=== PATIENT | female | born 1955 | race Caucasian/White ===

== ENCOUNTER 2024-09-12 13:11 | Inpatient (IN) | payer OTHER ==
[~2024-09-12] VITALS: Ht 160 cm; Wt 119.0 kg
[2024-09-12 13:24] VITALS: PULSE 174; RESP 17; O2SAT 98
--- NOTE | 2024-09-12 13:58 | ED.PDOC ---
SOB-HPI HPI Comments 69y F who presents to the ED via EMS for chief complaint of shortness of breath. Pt had the following course of events: - pt has been having shortness of breath for the past 1 month -pt states she could not handle the exacerbation of her symptoms and came to [facility] urgent care for further evaluation -Urgent care staff checked vitals and noted elevated heart rate and did EKG which showed AFIB RVR and called EMS -EMS arrived on scene and checked vitals with noted heart rate in the 200's and repeat EKG showed pt in AFIB RVR and pt was given IV fluids and placed on supplemental 0xygen of 4 L via nc with 02 sat at 95% and brought to the ED - pt in the ED, noted to have elevated heart rate in the 180's with noted BP of 171/106 and NO NOTED HISTORY OF AFIB -pt otherwise denies any other symptoms at this time PMH: hypertension ,asthma PSH: denies Allergies: denies Social history: denies tobacco use, denies ETOH use, denies drug use HPI: Poor Historian. REVIEW OF SYSTEMS: CONSTITUTIONAL: Denies acute: fever, diaphoresis, chills, HEAD: Denies acute: headache, photophobia Eyes: Denies acute: Double vision, vision loss, eye pain, eye discharge. EARS: Denies acute: tinnitus, hearing loss, ear discharge, ear pain, THROAT: Denies acute: sore throat, swelling, difficulty swallowing , pain with swallowing, change in voice. NECK: Denies acute: neck pain, neck swelling, stiff neck. HEART: Denies acute : chest pain, palpitations, LUNGS: Denies acute: wheezing, cough, hemoptysis ABDOMEN: Denies acute: abdominal pain, Nausea, Vomiting, diarrhea, melena , hematemesis, hematochezia SKIN: Denies acute: rash, redness, lesions, itchiness. EXTREMITIES: Denies acute: calf pain, numbness, tingling, weakness, denies pain in extremity. Denies acute: Low back pain. Neuro: Denies acute: focal neurological deficit, motor or sensory focal neurological deficit, tremors, seizure like activity, confusion, dizziness, change in mental status, loss of bowel or bladder function, cauda equina like symptoms. : Denies acute: dysuria, hematuria, flank pain, increase in urinary frequency. PSYCH: Denies acute: hallucination, suicidal ideation, homicidal ideation. FEMALE: Denies acute: abnormal vaginal bleeding, foul odor, unusual discharge. PHYSICAL EXAM: General: no acute distress, awake and alert. Head: normocephalic, atraumatic. Neck: supple, trachea is midline, no swelling. Throat: Normal phonation. Eyes:, no erythema, no purulent discharge, no proptosis, no icterus. Heart: Irregular rate and rhythm consistent with AFib with RVR. no significant murmur appreciated. Lungs: no apparent respiratory distress, Able to speak in full sentences. No wheezing, no rhonchi, no crackles. No stridors Clear to auscultation bilaterally. Abdomen: non tender to palpation, non distended, soft, no guarding, no rebound, + bowel sounds. Obese Neuro: Awake, Alert, oriented to name, self, situation, follows commands GCS=15. Speech is normal. Skin: no petechia, no purpura, no cyanosis, non-pale, not jaundice. Lower extremities: --trace bilateral - Pitting edema no deformity, no focal swelling, no calf TTP. Makes eye contact. moves all four extremities. Face: no apparent facial droop. ED COURSE: Time Seen by MD: 13:30 Reviewed notes: Nurses Notes, Flexo Folder Gluer Operator Notes, Medications, Allergies Information Source: Patient, Emergency Med Personnel Mode of Arrival: EMS Was a procedure done? Was a procedure done?: No Differential Dx Differential Diagnosis: Other (DDx include ACS, unstable angina, anxiety, PE, pneumothroax, neoplasm, cardiac ischemia, COPD, asthma, CHF, pleural effusion, tobacco abuse, pneumonia, hypoxia, hypercapnia, anemia., infection/sepsis., pulmonary edema. Asthma, Cardiac tamponade, infection.) X-Ray, Labs, Meds, VS Vital Signs Date Time Temp Pulse Resp B/P (MAP) Pulse Ox O2 Delivery O2 Flow Rate FiO2 09/12/24 18:30 131 09/12/24 18:00 133 19 127/94 (105) 97 09/12/24 17:50 133 124/78 09/12/24 17:41 133 16 124/78 (93) 97 09/12/24 17:30 133 24 124/78 (93) 97 09/12/24 17:23 135 09/12/24 17:00 135 16 116/69 (85) 95 09/12/24 16:55 136 116/69 09/12/24 16:54 136 09/12/24 16:19 137 125/59 09/12/24 16:00 137 09/12/24 16:00 137 13 125/59 (81) 92 09/12/24 15:45 135 26 104/64 (77) 94 09/12/24 15:39 136 14 126/93 (104) 96 09/12/24 15:21 169 126/93 09/12/24 15:20 126/93 09/12/24 15:20 169 20 98 09/12/24 14:28 142 09/12/24 14:00 178 20 129/58 (81) 98 09/12/24 13:45 97.6 187 26 171/106 (127) 94 97.6 09/12/24 13:30 183 09/12/24 13:24 97.7 174 17 125/66 (85) 98 97.7 09/12/24 13:24 97.7 174 17 125/66 (85) 98 97.7 09/12/24 13:24 174 17 98 Nasal Cannula* 2 28 Lab Test 09/12/24 16:50 09/12/24 15:28 09/12/24 15:14 09/12/24 13:56 Range/Units Troponin I High Sensitivity 11 12 12 </=34 ng/L Influenza Type A Antigen Negative Negative Influenza Type B Antigen Negative Negative SARS-CoV-2 Antigen (Rapid) Negative NEGATIVE Thyroid Stimulating Hormone (TSH) 0.62 0.55-4.78 uIU/mL White Blood Count 9.6 4.4-10.8 10^3/uL Red Blood Count 4.32 4.0-5.20 10^6/uL Hemoglobin 12.6 12.2-16.2 g/dL Hematocrit 39.1 36.0-46.0 % Mean Corpuscular Volume 90.7 80.0-100.0 fL Mean Corpuscular Hemoglobin 29.2 28.0-32.0 pg Mean Corpuscular Hemoglobin Concent 32.2 32.0-36.0 g/dL Red Cell Distribution Width 15.3 H 11.8-14.3 % Platelet Count 223 140-450 10^3/uL Mean Platelet Volume 8.9 6.9-10.8 fL Neutrophils (%) (Auto) 81.4 H 37.0-80.0 % Lymphocytes (%) (Auto) 10.3 10.0-50.0 % Monocytes (%) (Auto) 7.3 0.0-12.0 % Eosinophils (%) (Auto) 0.5 0.0-7.0 % Basophils (%) (Auto) 0.5 0.0-2.0 % Neutrophils # (Auto) 7.8 1.6-8.6 10 ^3/uL Lymphocytes # (Auto) 1.0 0.4-5.4 10 ^3/uL Monocytes # (Auto) 0.7 0-1.3 10 ^3/uL Eosinophils # (Auto) 0 0-0.8 10 ^3/uL Basophils # (Auto) 0.1 0-0.2 10 ^3/uL Nucleated Red Blood Cells 0.0 % D-Dimer, Quantitative 2.37 H 0.0-0.49 mg/L FEU Sodium Level 141 136-145 mmol/L Potassium Level 4.5 3.5-5.1 mmol/L Chloride Level 107 98-107 mmol/L Carbon Dioxide Level 27 20-31 mmol/L Anion Gap 7 5-15 Blood Urea Nitrogen 21 9-23 mg/dL Creatinine 0.75 0.550-1.02 mg/dL Glomerular Filtration Rate Calc 87 >90 mL/min BUN/Creatinine Ratio 28.0 H 10.0-20.0 Serum Glucose 170 H 74-106 mg/dL Lactic Acid Level 1.6 0.4-2.0 mmol/L Calcium Level 9.3 8.7-10.4 mg/dL Magnesium Level 1.8 1.6-2.6 mg/dL Total Bilirubin 0.7 0.2-1.0 mg/dL Aspartate Amino Transferase (AST) 25 13-40 U/L Alanine Aminotransferase (ALT) 38 7-40 U/L Alkaline Phosphatase 79 46-116 U/L B-Type Natriuretic Peptide 262.25 0-100 pg/mL Total Protein 6.4 5.7-8.2 g/dL Albumin 4.0 3.2-4.8 g/dL Test 09/12/24 13:18 Range/Units Urine Color Colorless Yellow Urine Clarity Clear Clear Urine pH 5.0 5.0-9.0 Urine Specific [place] 1.013 1.001-1.035 Urine Protein Negative Negative Urine Ketones Negative Negative Urine Blood Negative Negative /uL Urine Nitrite Negative Negative Urine Bilirubin Negative Negative Urine Urobilinogen Normal Negative mg/dL Urine Leukocyte Esterase 2+ Negative /uL Urine RBC 2 0 - 4 /hpf Urine Microscopic WBC 9 H 0-5 /HPF Urine Squamous Epithelial Cells Few <5 /hpf Urine Bacteria None seen None Seen /hpf Urine Glucose Normal Normal mg/dL Urine Opiates Screen Neg NEGATIVE Urine Fentanyl Screen Neg NEGATIVE Urine Barbiturates Screen Neg NEGATIVE Urine Phencyclidine Screen Neg NEGATIVE Urine Amphetamines Screen Neg NEGATIVE Urine Benzodiazepines Screen Neg NEGATIVE Urine Cocaine Screen Neg NEGATIVE Urine Cannabinoids Screen Neg NEGATIVE Current Medications Medications (Trade) Dose Ordered Sig/Giovani Route Start Time Stop Time Status Last Admin Diltiazem HCl (Cardizem Injection) 10 mg ONCE ONCE IV 09/12/24 14:00 09/12/24 14:01 DC 09/12/24 14:04 Furosemide (Lasix Injection) 40 mg ONCE ONCE IV 09/12/24 14:15 09/12/24 14:16 DC 09/12/24 15:20 Metoprolol Tartrate (Lopressor) 5 mg ONCE ONCE IV 09/12/24 14:45 09/12/24 14:46 DC 09/12/24 15:21 Metoprolol Tartrate (Lopressor Tablet) 75 mg ONCE ONCE PO 09/12/24 15:45 09/12/24 16:29 DC 09/12/24 16:55 Digoxin (Lanoxin Injection) 500 mcg ONCE ONCE IV 09/12/24 15:45 09/12/24 16:29 DC 09/12/24 16:[address] [address] Ph: [phone] DIAGNOSTIC IMAGING Diagnostic Imaging Report : [id number] Signed PATIENT: KHAI RODAS ACCT: [id number] UNIT: [id number] : 1955 LOC: ER ROOM / BED: / AGE / SEX: 69 / F ADM STATUS: REG ER SERVICE 1432 ORDERING PHYSICIAN: PERRI SALVADOR DO PROCEDURE(s): CTACH - CT ANGIO CHEST CONTRAST REASON: sob ORDER NUMBER(s): [id number], ACCESSION NUMBER(s): [id number] INDICATION: sob COMPARISON: Chest radiograph 09/12/2024 TECHNIQUE: Multidetector CTA of the chest was performed of the chest with 100 cc of intravenous contrast. PULMONARY ANGIOGRAPHY PROTOCOL was utilized using a bolus-tracking technique centered on the main pulmonary artery. Axial, coronal and sagittal multiplanar and MIP reformats were performed. Radiation Dose : 1. Chest: CTDI volume is 28.85 mGy. Dose-length product is 948.28 mGy*cm The dose indicators for CT are the volume Computed Tomography (CT) Dose Index (CTDIvol) and the Dose Length Product (DLP), and are measured in units of mGy and mGy-cm, respectively. These indicators are not patient dose, but values generated from the CT scanner acquisition factors. The report includes radiation exposure data for exposures received during this examination. Findings: The thyroid gland is unremarkable. Dilatation of the pulmonary trunk up to 35 mm. No evidence of pulmonary embolism. No evidence of aortic aneurysm. Limited evaluation for dissection. Moderate cardiomegaly with trace pericardial effusion. Mediastinal lymphadenopathy measuring up to 1.1 cm. Small grmun-ofsshyn-fbqw-left pleural effusions with associated atelectasis. No pneumothorax. Lingular, right middle lobe and left lower lobe atelectasis. There is reflux of contrast into the IVC and hepatic veins. Partially imaged 3.7 cm cystic structure of the anterior liver which may represent a cyst . Otherwise partial view of the upper abdomen is unremarkable. Fwnd-of-iscocloy Subcutaneous fat edema. Punctate sclerotic focus over the T7 superior vertebral body which may represent a bone island with a blastic lesion not excluded. IMPRESSION: No pulmonary embolism. No aortic aneurysm. Limited evaluation for dissection. Reflux of contrast into the IVC and hepatic veins with moderate cardiomegaly and trace pericardial effusion. Correlate for high right heart dysfunction. Dilatation of the pulmonary trunk up to 35 mm. Correlate for pulmonary arterial hypertension. Mediastinal lymphadenopathy measuring up to 1.1 cm which may be reactive. Small aozxk-zkyrpnq-axwr-left pleural effusions with associated atelectasis. Additional lingula, right middle lobe and left lower lobe atelectasis is noted. ATED BY: VAL KILGORE DO DICTATED DATE/TIME: 09/12/24 1525 SIGNED BY: VAL KILGORE DO SIGNED DATE/TIME: 09/12/24 1525 CC: [address] [address] Ph: [phone] DIAGNOSTIC IMAGING Diagnostic Imaging Report : [id number] Signed PATIENT: KHAI RODAS ACCT: [id number] UNIT: [id number] : 1955 LOC: ER ROOM / BED: / AGE / SEX: 69 / F ADM STATUS: REG ER SERVICE 1318 ORDERING PHYSICIAN: PERRI SALVADOR DO PROCEDURE(s): CXRP - CHEST PORTABLE REASON: afib w RVR, sob ORDER NUMBER(s): [id number], ACCESSION NUMBER(s): [id number] CHEST RADIOGRAPH Indication: afib w RVR, sob Technique: Single frontal view of the chest was obtained Comparison: None FINDINGS: Lines and Tubes: None Lungs: Mildly prominent interstitial markings throughout both lung charles. May represent pneumonia or congestive failure Pleura: No effusion. No pneumothorax. Cardiomediastinal contours: Cardiac size upper limits of normal. Bones: No acute osseous abnormality. IMPRESSION: 1. Cardiomegaly, mildly prominent interstitial markings diffusely throughout both lung charles. ATED BY: NENO CRUZ Jr., DO DICTATED DATE/TIME: 09/12/24 1354 SIGNED BY: NENO CRUZ Jr., DO SIGNED DATE/TIME: 09/12/24 1354 CC: Time of 1ST Reevaluation: 15:25 (The case was discussed with the admitting team (HPI, physical exam, labs and diagnostic tests that were available at the time of disposition, ED course, treatment plan) on the phone. They agreed to admit the patient to their service and assume care of this patient from this point forward. --- Kaylan) Reevaluation 1ST: Improved Patient Education/Counseling: Diagnosis, Treatment Family Education/Counseling: No Family Present Comments Patient presented with the above HPI.---cardiac/respiratory---workup was initiated. patient was found with the above mentioned diagnosis. the following medications were ordered: please refer to order lists of meds and tests obtained by myself Dr. Salvador. Patient ED course and VS have been stabilized. Patient has been reassessed in the ED and remained in a stable condition. Pertinent incidental findings were discussed with the patient and/or family. Patient/family voices understanding and is agreeable with plan. Patient has been observed in the ED adequate length of time to insure improvement/stability. Escalation of care considered: Consideration of escalation to observation or admission Patient was ADMITTED to the medicine team for further evaluation and treatment of their presentation. All the reports of any imaging studies that were ordered by myself were reviewed by myself. Departure 1 Departure Time of Disposition: 14:06 Impression: Primary Impression: Atrial fibrillation with RVR Additional Impressions: Dyspnea Pleural effusion CHF (congestive heart failure) Pulmonary artery hypertension UTI (urinary tract infection) Disposition: ADMITTED INPATIENT Admit to: Tele Condition: Guarded Discharged With: Self Critical Care Note Critical Care Time?: Yes (55 min-critical care time only) Heart Score Heart Score: Heart Score Response (Comments) Value History Slightly Suspicious [address]-Deviation 2 Age >65 2 Risk Factors 1 or 2 risk factors 1 Troponin Normal limit 0 Total 5 I personally scribed for PERRI SALVADOR DO ([email or web address]) on 09/12/24 at 13:58. Electronically submitted by Prisca Ford ([email or web address]). PERRI SALVADOR DO Sep 12, 2024 13:58
[2024-09-12] MEDS: dilTIAZem 25 MG/5 ML VIAL IV ONE ×2 (14:04→20:12)
[2024-09-12 14:08] LABS: Basophils # (auto) 0.1 10 ^3/uL (0-0.2); Basophils % (auto) 0.5 % (0.0-2.0); Eosinophils # (auto) 0 10 ^3/uL (0-0.8); Eosinophils % (auto) 0.5 % (0.0-7.0); Hematocrit 39.1 % (36.0-46.0); Hemoglobin 12.6 g/dL (12.2-16.2); Lymphocytes % (auto) 10.3 % (10.0-50.0); Mean Corpuscular Hemoglobin 29.2 pg (28.0-32.0); Mean Corpuscular Hgb Conc. 32.2 g/dL (32.0-36.0); Mean Corpuscular Volume 90.7 fL (80.0-100.0); Monocytes # (auto) 0.7 10 ^3/uL (0-1.3); Monocytes % (auto) 7.3 % (0.0-12.0); Neutrophils # (auto) 7.8 10 ^3/uL (1.6-8.6); Neutrophils % (auto) 81.4 % (37.0-80.0); Platelet Count (auto) 223 10^3/uL (140-450); Red Blood Cells 4.32 10^6/uL (4.0-5.20); Red Cell Distribution Width 15.3 % (11.8-14.3); White Blood Cell 9.6 10^3/uL (4.4-10.8)
[2024-09-12 14:26] LABS: Alanine Aminotransferase 38 U/L (7-40); Alkaline Phosphatase 79 U/L (46-116); Anion Gap 7 (5-15); Aspartate Aminotransferase 25 U/L (13-40); Blood Urea Nitrogen 21 mg/dL (9-23); Calcium 9.3 mg/dL (8.7-10.4); Carbon Dioxide 27 mmol/L (20-31); Chloride 107 mmol/L (98-107); Magnesium 1.8 mg/dL (1.6-2.6); Potassium 4.5 mmol/L (3.5-5.1); Sodium 141 mmol/L (136-145); Total Protein 6.4 g/dL (5.7-8.2)
[2024-09-12 14:27] LABS: Bilirubin, Total 0.7 mg/dL (0.2-1.0)
[2024-09-12 14:28] LABS: Glucose 170 mg/dL (74-106)
[2024-09-12] MEDS: FUROSEMIDE 40 MG/4 ML VIAL IV ONE (15:20)
[2024-09-12] MEDS: METOPROLOL TARTRATE 1MG/1ML-5ML VIAL IV ONE (15:21)
[2024-09-12] MEDS: IOHEXOL 350 MG/ML 100ML IJ ONE (15:21)
--- NOTE | 2024-09-12 15:27 | DVH ---
INDICATION: sob COMPARISON: Chest radiograph 09/12/2024 TECHNIQUE: Multidetector CTA of the chest was performed of the chest with 100 cc of intravenous contr ast. PULMONARY ANGIOGRAPHY PROTOCOL was utilized using a bolus-tracking technique centered on the annamaria n pulmonary artery. Axial, coronal and sagittal multiplanar and MIP reformats were performed. Radiation Dose : 1. Chest: CTDI volume is 28.85 mGy. Dose-length product is 948.28 mGy*cm The dose indicators for CT are the volume Computed Tomography (CT) Dose Index (CTDIvol) and the Dose Length Product (DLP), and are measured in units of mGy and mGy-cm, respectively. These indicators are not patient dose, but values generated from the CT scanner acquisition factors. The report includes radiation exposure data for exposures received during this examination. Findings: The thyroid gland is unremarkable. Dilatation of the pulmonary trunk up to 35 mm. No evidence of pulmonary embolism. No evidence of aor tic aneurysm. Limited evaluation for dissection. Moderate cardiomegaly with trace pericardial effusion. Mediastinal lymphadenopathy measuring up to 1.1 cm. Small wwajx-hrocevx-poaj-left pleural effusions with associated atelectasis. No pneumothorax. Lingul ar, right middle lobe and left lower lobe atelectasis. There is reflux of contrast into the IVC and hepatic veins. Partially imaged 3.7 cm cystic structure of the anterior liver which may represent a cyst . Otherwise partial view of the upper abdomen is unr emarkable. Urye-vh-xqyqzisk Subcutaneous fat edema. Punctate sclerotic focus over the T7 superior vertebral body which may represent a bone island with a blastic lesion not excluded. IMPRESSION: No pulmonary embolism. No aortic aneurysm. Limited evaluation for dissection. Reflux of contrast into the IVC and hepatic veins with moderate cardiomegaly and trace pericardial ef fusion. Correlate for high right heart dysfunction. Dilatation of the pulmonary trunk up to 35 mm. Correlate for pulmonary arterial hypertension. Mediastinal lymphadenopathy measuring up to 1.1 cm which may be reactive. Small qhgwp-qnugjvk-yasx-left pleural effusions with associated atelectasis. Additional lingula, rig ht middle lobe and left lower lobe atelectasis is noted.
[2024-09-12] MEDS ORDERED: DIGOXIN (250MCG/ML) 2 ML AMPULE IV ONE (15:45)
[2024-09-12 16:53] LABS: COVID19 ANTIGEN SOFIA FIA NEGATIVE (NEGATIVE); Rapid Influenza A Negative (Negative); Rapid Influenza B Negative (Negative)
[2024-09-12] MEDS: DIGOXIN (250MCG/ML) 2 ML AMPULE IV ONE (16:54)
[2024-09-12] MEDS: METOPROLOL TARTRATE 25 MG TAB PO ONE (16:55)
[2024-09-12 17:38] LABS: Urine Bacteria None Seen /hpf (None Seen)
[2024-09-12 17:56] LABS: Urine Blood Negative /uL (Negative); Urine Clarity Clear (Clear); Urine Color Colorless (Yellow); Urine Protein, UAD Negative (Negative); Urine Specific Gravity 1.013 (1.001-1.035); Urine Squamous Epithelial Cell FEW /hpf (<5); Urine Urobilinogen Normal (Negative); Urine WBC 9 /HPF (0-5)
--- NOTE | 2024-09-12 18:34 | ECG ---
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
--- NOTE | 2024-09-12 18:35 | ECG ---
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
--- NOTE | 2024-09-12 18:35 | ECG ---
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
[2024-09-12] MEDS ORDERED: ACETAMINOPHEN 325 MG TAB PO PRN (18:45)
[2024-09-12] MEDS ORDERED: MORPHINE SULFATE INJ 2 MG/ml SYRG IV PRN (18:45)
[2024-09-12] MEDS ORDERED: NITROGLYCERIN 0.4 MG SL TAB SL PRN (18:45)
[2024-09-12] MEDS: MAGNESIUM OXIDE 400 MG TAB PO ONE (18:54)
[2024-09-12] MEDS: AMIODARONE BOLUS KIT 100 ML IV ONE (18:58)
[2024-09-12] MEDS: AMIODARONE 360mg/200mL PREMIX 200 ML IV ONE (19:10)
[2024-09-12 20:21] LABS: Amphetamine Screen, Urine Neg (NEGATIVE)
[2024-09-12 20:23] LABS: Barbiturate Scree,Urine Neg (NEGATIVE); Benzodiazephine Screen, Urine Neg (NEGATIVE); Cannabinoid Screen, Urine Neg (NEGATIVE); Cocaine Screen, Urine Neg (NEGATIVE); Opiate Scree,Urine Neg (NEGATIVE); Phencyclidine Screen, Urine Neg (NEGATIVE)
[2024-09-12 21:04] VITALS: PULSE 124; RESP 30; O2SAT 98
[2024-09-12] MEDS: APIXABAN 5 MG TAB PO SCH (22:07)
[2024-09-12 22:47] VITALS: BP 113/48; PULSE 125; RESP 19; TEMP 97.4; O2SAT 98
[2024-09-12] MEDS ORDERED: FLUT250M2 INH (23:12)
[2024-09-12] MEDS ORDERED: ZAFI10TA7 PO (23:12)
[2024-09-12] MEDS ORDERED: OMEG1400 PO (23:12)
[2024-09-12] MEDS ORDERED: ALBUAER3 IN (23:12)
[2024-09-12] MEDS ORDERED: LISI10TA34 PO (23:12)
[2024-09-12 23:13] VITALS: PULSE 125; RESP 19; O2SAT 98
[2024-09-12] MEDS: HYDROcodone-ACET 5/325MG TAB PO PRN (23:24)
--- NOTE | 2024-09-12 23:54 | DVHINCON2 ---
Date of service: Sep 12, 2024 Referring Physician Kaylan Reason for Consultation Afib RVR History of Present Illness This is a 69 year old female with a PMH of hypertension, asthma who was brought in by EMS with complaint of shortness of breath x1 month. Patient states she could not handle the exacerbation of her symptoms and [facility] evaluation. Urgent care staff checked the patient's vitals and she was found with an elevated heart rate. staff also performed an EKG which showed Afib RVR and called EMS. EMS arrived on scene and rechecked the patient's vitals and the patient's heart rate was in the 200's and repeat EKG showed A-fib RVR and patient was given IV fluids and placed on supplemental oxygen 4 L via NC with 02 sat at 95% and brought to the ED. Upon arrival to the ED, patient's heart rate remained elevated however decreased to the 180's with noted BP of 171/106. D-DIMER 2.37. TROP x3 12, 12, 11. Chest x-ray shows cardiomegaly, mildly prominent interstitial markings diffusely throughout both lung charles. CTA chest shows no evidence of pulmonary embolism. No aortic aneurysm. Reflux of contrast into the IVC and hepatic veins with moderate cardiomegaly and trace pericardial effusion. Dilatation of the pulmonary trunk up to 35 mm. Mediastinal lymphadenopathy measuring up to 1.1 cm which may be reactive. Small aylux-[id number]-left pleural effusions with associated atelectasis. Additional lingula, right middle lobe and left lower lobe atelectasis is noted. Patient was admitted to the hospital. I am asked to consult on this patient. Allergies: Coded Allergies: Latex (Verified Allergy, Unknown, 09/12/24) Penicillins (Verified Allergy, Unknown, 09/12/24) Sulfa Antibiotics (Verified Allergy, Unknown, 09/12/24) Home Meds Reported Medications [place]-3 Fatty Acids ([place]-3) 1,400 Mg Cap, 1400 MG PO, CAP 09/12/24 Zafirlukast (Zafirlukast) 10 Mg Tab, 10 MG PO, TAB 09/12/24 Lisinopril (Lisinopril) 10 Mg Tab, 10 MG PO, TAB 09/12/24 Albuterol Sulfate (VENTOLIN MDI) 90 Mcg Ih, 90 MCG IN, INH 09/12/24 Fluticasone-Salmeterol (Advair Diskus 250/50) 1 Puff Ih, 1 PUFF INH BID, #3 INHALER 3 Refills 09/12/24 Current Medications Current Medications Medications (Trade) Dose Ordered Sig/Giovani Route PRN Reason Start Time Stop Time Status Last Admin Acetaminophen (Tylenol Tablet) 325 mg Q4HP PRN PO MILD PAIN (1-3 PAIN SCALE) 09/12/24 18:45 Acetaminophen/ Hydrocodone Bitart (Alfred 5/325MG Tab) 1 tab Q4HP PRN PO MODERATE PAIN (4-6 PAIN SCALE) 09/12/24 18:45 Temazepam (Restoril) 15 mg QHSP PRN PO FOR INSOMNIA 09/12/24 18:45 Nitroglycerin (Ntrostat Sublingual) 0.4 mg Q5MINP PRN SL FOR CHEST PAIN 09/12/24 18:45 Morphine Sulfate 2 mg Q30M PRN IV FOR CHEST PAIN 09/12/24 18:45 Apixaban (Eliquis) 5 mg BID PO 09/12/24 22:00 Furosemide (Lasix Injection) 40 mg DAILY IV 09/13/24 10:00 Review of Systems CONSTITUTIONAL: Denies acute: fever, diaphoresis, chills, HEAD: Denies acute: headache, photophobia Eyes: Denies acute: Double vision, vision loss, eye pain, eye discharge. EARS: Denies acute: tinnitus, hearing loss, ear discharge, ear pain, THROAT: Denies acute: sore throat, swelling, difficulty swallowing , pain with swallowing, change in voice. NECK:Denies acute: neck pain, neck swelling, stiff neck. HEART:Denies acute : chest pain, palpitations, LUNGS:Denies acute: wheezing, cough, hemoptysis ABDOMEN:Denies acute: abdominal pain, Nausea, Vomiting, diarrhea, melena , hematemesis, hematochezia SKIN:Denies acute: rash, redness, lesions, itchiness. EXTREMITIES:Denies acute: calf pain, numbness, tingling, weakness, denies pain in extremity.Denies acute: Low back pain. Neuro:Denies acute: focal neurological deficit, motor or sensory focal neurological deficit, tremors, seizure like activity, confusion, dizziness, change in mental status, loss of bowel or bladder function, cauda equina like symptoms. : Denies acute: dysuria, hematuria, flank pain, increase in urinary frequency. PSYCH: Denies acute: hallucination, suicidal ideation, homicidal ideation. FEMALE: Denies acute: abnormal vaginal bleeding, foul odor, unusual discharge. Vital Signs Vital Signs Date Time Temp Pulse Resp B/P (MAP) Pulse Ox O2 Delivery O2 Flow Rate FiO2 09/12/24 19:00 131 16 118/97 (104) 95 09/12/24 13:45 97.6 97.6 09/12/24 13:24 Nasal Cannula* 2 28 Physical Exam GENERAL: Awake, alert, oriented. Morbidly obese. LUNGS: Clear. CARDIOVASCULAR: Irregular rate/rhythm. ABDOMEN: Soft. Labs/Diagnostic Data Labs Test 09/12/24 16:50 09/12/24 15:28 09/12/24 15:14 09/12/24 13:56 Range/Units Troponin I High Sensitivity 11 </=34 ng/L Influenza Type A Antigen Negative Negative Influenza Type B Antigen Negative Negative SARS-CoV-2 Antigen (Rapid) Negative NEGATIVE Thyroid Stimulating Hormone (TSH) 0.62 0.55-4.78 uIU/mL White Blood Count 9.6 4.4-10.8 10^3/uL Red Blood Count 4.32 4.0-5.20 10^6/uL Hemoglobin 12.6 12.2-16.2 g/dL Hematocrit 39.1 36.0-46.0 % Mean Corpuscular Volume 90.7 80.0-100.0 fL Mean Corpuscular Hemoglobin 29.2 28.0-32.0 pg Mean Corpuscular Hemoglobin Concent 32.2 32.0-36.0 g/dL Red Cell Distribution Width 15.3 H 11.8-14.3 % Platelet Count 223 140-450 10^3/uL Mean Platelet Volume 8.9 6.9-10.8 fL Neutrophils (%) (Auto) 81.4 H 37.0-80.0 % Lymphocytes (%) (Auto) 10.3 10.0-50.0 % Monocytes (%) (Auto) 7.3 0.0-12.0 % Eosinophils (%) (Auto) 0.5 0.0-7.0 % Basophils (%) (Auto) 0.5 0.0-2.0 % Neutrophils # (Auto) 7.8 1.6-8.6 10 ^3/uL Lymphocytes # (Auto) 1.0 0.4-5.4 10 ^3/uL Monocytes # (Auto) 0.7 0-1.3 10 ^3/uL Eosinophils # (Auto) 0 0-0.8 10 ^3/uL Basophils # (Auto) 0.1 0-0.2 10 ^3/uL Nucleated Red Blood Cells 0.0 % D-Dimer, Quantitative 2.37 H 0.0-0.49 mg/L FEU Sodium Level 141 136-145 mmol/L Potassium Level 4.5 3.5-5.1 mmol/L Chloride Level 107 98-107 mmol/L Carbon Dioxide Level 27 20-31 mmol/L Anion Gap 7 5-15 Blood Urea Nitrogen 21 9-23 mg/dL Creatinine 0.75 0.550-1.02 mg/dL Glomerular Filtration Rate Calc 87 >90 mL/min BUN/Creatinine Ratio 28.0 H 10.0-20.0 Serum Glucose 170 H 74-106 mg/dL Lactic Acid Level 1.6 0.4-2.0 mmol/L Calcium Level 9.3 8.7-10.4 mg/dL Magnesium Level 1.8 1.6-2.6 mg/dL Total Bilirubin 0.7 0.2-1.0 mg/dL Aspartate Amino Transferase (AST) 25 13-40 U/L Alanine Aminotransferase (ALT) 38 7-40 U/L Alkaline Phosphatase 79 46-116 U/L B-Type Natriuretic Peptide 262.25 0-100 pg/mL Total Protein 6.4 5.7-8.2 g/dL Albumin 4.0 3.2-4.8 g/dL Test 09/12/24 13:18 Range/Units Urine Color Colorless Yellow Urine Clarity Clear Clear Urine pH 5.0 5.0-9.0 Urine Specific [place] 1.013 1.001-1.035 Urine Protein Negative Negative Urine Ketones Negative Negative Urine Blood Negative Negative /uL Urine Nitrite Negative Negative Urine Bilirubin Negative Negative Urine Urobilinogen Normal Negative mg/dL Urine Leukocyte Esterase 2+ Negative /uL Urine RBC 2 0 - 4 /hpf Urine Microscopic WBC 9 H 0-5 /HPF Urine Squamous Epithelial Cells Few <5 /hpf Urine Bacteria None seen None Seen /hpf Urine Glucose Normal Normal mg/dL Assessment Atrial fibrillation with RVR. Dyspnea. Pleural effusion. CHF (congestive heart failure). Pulmonary artery hypertension. UTI. Plan/Recommendation I agree with your ongoing assessment and care of plan. Telemetry reviewed. Echocardiogram. Morphine and [place] for pain management. Eliquis. Diuretics with Lasix. Nitro SL. Additional plan as per the hospital course. A total of 45 minutes was spent reviewing the patient record, examining the patient, making a diagnostic and therapeutic plan, discussing this plan with medical personnel, following up on diagnostic studies and following the patient for clinical stability excluding any and all procedures. At least 50% of this time was spent in direct, [id number] contact. Plan discussed with: Patient JAMES NICHOLS MD Sep 12, 2024 19:51
[2024-09-13] VITALS (8 sets, daily range): BP systolic 99–157; BP diastolic 44–79; PULSE 90–129; RESP 15–19; TEMP 97.3–98.1; O2SAT 91–100
[2024-09-13] MEDS: AMIODARONE 360mg/200mL PREMIX 200 ML IV SCH (00:54)
[2024-09-13 05:35] LABS: Basophils # (auto) 0 10 ^3/uL (0-0.2); Basophils % (auto) 0.2 % (0.0-2.0); Eosinophils # (auto) 0 10 ^3/uL (0-0.8); Hematocrit 36.6 % (36.0-46.0); Lymphocytes # (auto) 0.8 10 ^3/uL (0.4-5.4); Lymphocytes % (auto) 10.1 % (10.0-50.0); Mean Corpuscular Hgb Conc. 32.9 g/dL (32.0-36.0); Mean Corpuscular Volume 91.3 fL (80.0-100.0); Monocytes # (auto) 0.2 10 ^3/uL (0-1.3); Monocytes % (auto) 2.8 % (0.0-12.0); Neutrophils # (auto) 6.7 10 ^3/uL (1.6-8.6); Neutrophils % (auto) 86.9 % (37.0-80.0); Platelet Count (auto) 214 10^3/uL (140-450); Red Blood Cells 4.01 10^6/uL (4.0-5.20); Red Cell Distribution Width 15.5 % (11.8-14.3); White Blood Cell 7.8 10^3/uL (4.4-10.8)
[2024-09-13 05:54] LABS: Alanine Aminotransferase 31 U/L (7-40); Albumin 3.7 g/dL (3.2-4.8); Alkaline Phosphatase 71 U/L (46-116); Anion Gap 7 (5-15); Aspartate Aminotransferase 19 U/L (13-40); BUN/Creatinine Ratio 21.2 (10.0-20.0); Bilirubin, Total 0.5 mg/dL (0.2-1.0); Blood Urea Nitrogen 22 mg/dL (9-23); Calcium 8.9 mg/dL (8.7-10.4); Carbon Dioxide 26 mmol/L (20-31); Chloride 104 mmol/L (98-107); Potassium 4.6 mmol/L (3.5-5.1); Sodium 137 mmol/L (136-145); Total Protein 6.3 g/dL (5.7-8.2)
[2024-09-13 05:55] LABS: Glucose 335 mg/dL (74-106)
--- NOTE | 2024-09-13 08:29 | DVHHP2 ---
Admitting Diagnosis: Atrial Fibrillation with RVR History of Present Illness HPI Patient is a 69-year-old female with past medical history of hypertension who presented from [facility] urgent care after being found in atrial fibrillation with RVR. Patient presented to the ER with heart rate greater than 170. Patient was given diltiazem, metoprolol and digoxin with minimal improvement in heart rate. Patient denies prior history of atrial fibrillation or other cardiac history. Patient was admitted for further medical management. Home Meds Reported Medications [place]-3 Fatty Acids ([place]-3) 1,400 Mg Cap, 1400 MG PO, CAP 09/12/24 Zafirlukast (Zafirlukast) 10 Mg Tab, 10 MG PO, TAB 09/12/24 Lisinopril (Lisinopril) 10 Mg Tab, 10 MG PO, TAB 09/12/24 Albuterol Sulfate (VENTOLIN MDI) 90 Mcg Ih, 90 MCG IN, INH 09/12/24 Fluticasone-Salmeterol (Advair Diskus 250/50) 1 Puff Ih, 1 PUFF INH BID, #3 INHALER 3 Refills 09/12/24 Past Medical History Cardiac: HTN Patient Family History: Patient reports no known family medical history. Review of Systems Pulmonary/Respiratory: Dyspnea Cardiovascular: Palpitations H&P Exam Vital Signs Vital Signs Date Time Temp Pulse Resp B/P (MAP) Pulse Ox O2 Delivery O2 Flow Rate FiO2 09/13/24 05:00 97.3 117 19 99/66 (77) 96 97.3 09/12/24 23:13 Nasal Cannula* 3 32 General Appeara: Obese Pulmonary/Respiratory: Crackles Cardiovascular/Chest: Irregularly irregular Labs/Xrays Labs Test 09/13/24 05:10 09/12/24 16:50 09/12/24 15:28 09/12/24 15:14 Range/Units White Blood Count 7.8 4.4-10.8 10^3/uL Red Blood Count 4.01 4.0-5.20 10^6/uL Hemoglobin 12.0 L 12.2-16.2 g/dL Hematocrit 36.6 36.0-46.0 % Mean Corpuscular Volume 91.3 80.0-100.0 fL Mean Corpuscular Hemoglobin 30.0 28.0-32.0 pg Mean Corpuscular Hemoglobin Concent 32.9 32.0-36.0 g/dL Red Cell Distribution Width 15.5 H 11.8-14.3 % Platelet Count 214 140-450 10^3/uL Mean Platelet Volume 8.9 6.9-10.8 fL Neutrophils (%) (Auto) 86.9 H 37.0-80.0 % Lymphocytes (%) (Auto) 10.1 10.0-50.0 % Monocytes (%) (Auto) 2.8 0.0-12.0 % Eosinophils (%) (Auto) 0.0 0.0-7.0 % Basophils (%) (Auto) 0.2 0.0-2.0 % Neutrophils # (Auto) 6.7 1.6-8.6 10 ^3/uL Lymphocytes # (Auto) 0.8 0.4-5.4 10 ^3/uL Monocytes # (Auto) 0.2 0-1.3 10 ^3/uL Eosinophils # (Auto) 0 0-0.8 10 ^3/uL Basophils # (Auto) 0 0-0.2 10 ^3/uL Nucleated Red Blood Cells 0.0 % Sodium Level 137 136-145 mmol/L Potassium Level 4.6 3.5-5.1 mmol/L Chloride Level 104 98-107 mmol/L Carbon Dioxide Level 26 20-31 mmol/L Anion Gap 7 5-15 Blood Urea Nitrogen 22 9-23 mg/dL Creatinine 1.04 #H 0.550-1.02 mg/dL Glomerular Filtration Rate Calc 59 >90 mL/min BUN/Creatinine Ratio 21.2 H 10.0-20.0 Serum Glucose 335 H 74-106 mg/dL Calcium Level 8.9 8.7-10.4 mg/dL Total Bilirubin 0.5 0.2-1.0 mg/dL Aspartate Amino Transferase (AST) 19 13-40 U/L Alanine Aminotransferase (ALT) 31 7-40 U/L Alkaline Phosphatase 71 46-116 U/L Total Protein 6.3 5.7-8.2 g/dL Albumin 3.7 3.2-4.8 g/dL Troponin I High Sensitivity 11 </=34 ng/L Influenza Type A Antigen Negative Negative Influenza Type B Antigen Negative Negative SARS-CoV-2 Antigen (Rapid) Negative NEGATIVE Thyroid Stimulating Hormone (TSH) 0.62 0.55-4.78 uIU/mL Test 09/12/24 13:56 09/12/24 13:18 Range/Units D-Dimer, Quantitative 2.37 H 0.0-0.49 mg/L FEU Lactic Acid Level 1.6 0.4-2.0 mmol/L Magnesium Level 1.8 1.6-2.6 mg/dL B-Type Natriuretic Peptide 262.25 0-100 pg/mL Urine Color Colorless Yellow Urine Clarity Clear Clear Urine pH 5.0 5.0-9.0 Urine Specific [place] 1.013 1.001-1.035 Urine Protein Negative Negative Urine Ketones Negative Negative Urine Blood Negative Negative /uL Urine Nitrite Negative Negative Urine Bilirubin Negative Negative Urine Urobilinogen Normal Negative mg/dL Urine Leukocyte Esterase 2+ Negative /uL Urine RBC 2 0 - 4 /hpf Urine Microscopic WBC 9 H 0-5 /HPF Urine Squamous Epithelial Cells Few <5 /hpf Urine Bacteria None seen None Seen /hpf Urine Glucose Normal Normal mg/dL Urine Opiates Screen Neg NEGATIVE Urine Fentanyl Screen Neg NEGATIVE Urine Barbiturates Screen Neg NEGATIVE Urine Phencyclidine Screen Neg NEGATIVE Urine Amphetamines Screen Neg NEGATIVE Urine Benzodiazepines Screen Neg NEGATIVE Urine Cocaine Screen Neg NEGATIVE Urine Cannabinoids Screen Neg NEGATIVE Assessment/Plan Primary Diagnosis 1. Atrial Fibrillation with RVR 2' Diagnosis/Co-morbidities 2. Morbid Obesity 3. Acute Respiratory Failure Plan -Admit to telemetry -Cardiology consulted for atrial fibrillation with RVR -Goal HR <120 -Amiodarone drip -Eliquis started for stroke risk reduction. Patient counseled on bleeding risks/ precautions -Metoprolol and digoxin doses given due to persistent tachycardia -TTE pending -Lasix 40 mg IV daily given 1+ pitting edema and elevated BNP (falsely low likely due to morbid obesity) -Continue nasal cannula with goal pulse oxygen of greater than 90% -PE ruled out, pneumonia unlikely. Respiratory failure likely secondary to CHF exacerbation versus pulmonary hypertension -CODE STATUS: DO NOT RESUSCITATE, discussed with the patient at bedside. Plan discussed with: Patient SANCHEZ TOURE Sep 13, 2024 08:29
[2024-09-13] MEDS: FUROSEMIDE 40 MG/4 ML VIAL IV SCH (10:08)
[2024-09-13] MEDS: METOPROLOL TARTRATE 25 MG TAB PO SCH (10:09)
[2024-09-13] MEDS: DIGOXIN (250MCG/ML) 2 ML AMPULE IV ONE (10:14)
--- NOTE | 2024-09-13 15:23 | DVHPN2 ---
Progress Note - Dictate Date Seen: Sep 13, 2024 Medical Necessity Reason Pt with a Central, PICC or Fol: No Subjective Patient was seen and evaluated in follow up. Patient is complaining of generalized pain. [employer] 1.04, GLUC 335, TSH 0.25. Echocardiogram is ordered and pending. Telemetry reviewed. vital signs Vital Sign Date Time Temp Pulse Resp B/P (MAP) Pulse Ox O2 Delivery O2 Flow Rate FiO2 09/13/24 10:14 127 09/13/24 10:09 114/66 09/13/24 09:00 97.4 15 98 97.4 09/13/24 08:00 Nasal Cannula* 3 32 Total Intake and Output 09/12/24 09/12/24 09/13/24 15:00 23:00 07:00 Intake Total 100 ml 240 ml Output Total 900 ml Balance -800 ml 240 ml medications Current Medications Medications Dose Ordered Sig/Giovani Route Start Time Stop Time Status Last Admin Dose Admin Acetaminophen 325 mg Q4HP PRN PO 09/12/24 18:45 Acetaminophen/ Hydrocodone Bitart 1 tab Q4HP PRN PO 09/12/24 18:45 09/12/24 23:24 1 TAB Temazepam 15 mg QHSP PRN PO 09/12/24 18:45 Nitroglycerin 0.4 mg Q5MINP PRN SL 09/12/24 18:45 Morphine Sulfate 2 mg Q30M PRN IV 09/12/24 18:45 Apixaban 5 mg BID PO 09/12/24 22:00 09/13/24 10:09 5 MG Furosemide 40 mg DAILY IV 09/13/24 10:00 09/13/24 10:08 40 MG Metoprolol Tartrate 12.5 mg TID PO 09/13/24 14:00 09/13/24 10:09 12.5 MG objective GENERAL: Awake, alert, oriented. Morbidly obese. LUNGS: Clear. CARDIOVASCULAR: Irregular rate/rhythm. ABDOMEN: Soft. laboratory and microbiology Laboratory Tests 09/13/24 05:10 Test 09/13/24 05:10 Range/Units Serum Glucose 335 H 74-106 mg/dL Problem List Atrial fibrillation with RVR. Dyspnea. Pleural effusion. CHF (congestive heart failure). Pulmonary artery hypertension. UTI. Assessment/Plan Continued all current supportive medical care. Echocardiogram. Digoxin. Morphine and [place] for pain management. Eliquis. Diuretics with Lasix. Nitro SL. Additional plan as per the hospital course. Plan discussed with: Patient JAMES NICHOLS MD Sep 13, 2024 12:41
[2024-09-14] VITALS (8 sets, daily range): BP systolic 101–122; BP diastolic 56–70; PULSE 68–128; RESP 16–19; TEMP 97.5–98.6; O2SAT 94–99
[2024-09-14 05:43] LABS: Basophils # (auto) 0 10 ^3/uL (0-0.2); Basophils % (auto) 0.2 % (0.0-2.0); Eosinophils # (auto) 0 10 ^3/uL (0-0.8); Eosinophils % (auto) 0.2 % (0.0-7.0); Hematocrit 34.9 % (36.0-46.0); Hemoglobin 11.5 g/dL (12.2-16.2); Lymphocytes # (auto) 1.9 10 ^3/uL (0.4-5.4); Lymphocytes % (auto) 13.3 % (10.0-50.0); Mean Corpuscular Hemoglobin 29.7 pg (28.0-32.0); Mean Corpuscular Hgb Conc. 33.1 g/dL (32.0-36.0); Mean Corpuscular Volume 89.9 fL (80.0-100.0); Monocytes # (auto) 1.2 10 ^3/uL (0-1.3); Monocytes % (auto) 8.6 % (0.0-12.0); Neutrophils # (auto) 11.1 10 ^3/uL (1.6-8.6); Neutrophils % (auto) 77.7 % (37.0-80.0); Platelet Count (auto) 251 10^3/uL (140-450); Red Blood Cells 3.88 10^6/uL (4.0-5.20); White Blood Cell 14.3 10^3/uL (4.4-10.8)
[2024-09-14 06:18] LABS: Alanine Aminotransferase 30 U/L (7-40); Albumin 3.8 g/dL (3.2-4.8); Alkaline Phosphatase 61 U/L (46-116); Anion Gap 7 (5-15); Aspartate Aminotransferase 14 U/L (13-40); BUN/Creatinine Ratio 30.7 (10.0-20.0); Bilirubin, Total 0.4 mg/dL (0.2-1.0); Calcium 9.4 mg/dL (8.7-10.4); Carbon Dioxide 27 mmol/L (20-31); Total Protein 6.3 g/dL (5.7-8.2)
[2024-09-14 06:22] LABS: Blood Urea Nitrogen 27 mg/dL (9-23); Chloride 101 mmol/L (98-107); Glucose 187 mg/dL (74-106); Potassium 4.6 mmol/L (3.5-5.1); Sodium 135 mmol/L (136-145)
[2024-09-14] MEDS: POLYETHYLENE GLYCOL 17 GM PWDR PO SCH (10:15)
[2024-09-14] MEDS: levoFLOXacin 250 MG TAB PO SCH (11:41)
[2024-09-14] MEDS: METOPROLOL TARTRATE 25 MG TAB PO SCH (11:41)
[2024-09-14] MEDS ORDERED: LEVO750T40 PO (13:13)
[2024-09-14] MEDS ORDERED: MET25T PO (13:13)
[2024-09-14] MEDS ORDERED: APIX5TAB PO (13:13)
[2024-09-14] MEDS ORDERED: AMIO200T13 PO (13:15)
--- NOTE | 2024-09-14 13:46 | DVHDS2 ---
Discharge Summary Date of Admission Sep 12, 2024 at 18:37 Date of Discharge: Sep 17, 2024 Labs/Diagnostic Data: Laboratory Results Test 09/14/24 05:21 09/13/24 05:10 09/12/24 16:50 09/12/24 15:28 White Blood Count 14.3 10^3/uL (4.4-10.8) Red Blood Count 3.88 10^6/uL (4.0-5.20) Hemoglobin 11.5 g/dL (12.2-16.2) Hematocrit 34.9 % (36.0-46.0) Mean Corpuscular Volume 89.9 fL (80.0-100.0) Mean Corpuscular Hemoglobin 29.7 pg (28.0-32.0) Mean Corpuscular Hemoglobin Concent 33.1 g/dL (32.0-36.0) Red Cell Distribution Width 15.0 % (11.8-14.3) Platelet Count 251 10^3/uL (140-450) Mean Platelet Volume 8.7 fL (6.9-10.8) Neutrophils (%) (Auto) 77.7 % (37.0-80.0) Lymphocytes (%) (Auto) 13.3 % (10.0-50.0) Monocytes (%) (Auto) 8.6 % (0.0-12.0) Eosinophils (%) (Auto) 0.2 % (0.0-7.0) Basophils (%) (Auto) 0.2 % (0.0-2.0) Neutrophils # (Auto) 11.1 10 ^3/uL (1.6-8.6) Lymphocytes # (Auto) 1.9 10 ^3/uL (0.4-5.4) Monocytes # (Auto) 1.2 10 ^3/uL (0-1.3) Eosinophils # (Auto) 0 10 ^3/uL (0-0.8) Basophils # (Auto) 0 10 ^3/uL (0-0.2) Nucleated Red Blood Cells 0.0 % Sodium Level 135 mmol/L (136-145) Potassium Level 4.6 mmol/L (3.5-5.1) Chloride Level 101 mmol/L (98-107) Carbon Dioxide Level 27 mmol/L (20-31) Anion Gap 7 (5-15) Blood Urea Nitrogen 27 mg/dL (9-23) Creatinine 0.88 mg/dL (0.550-1.02) Glomerular Filtration Rate Calc 72 mL/min (>90) BUN/Creatinine Ratio 30.7 (10.0-20.0) Serum Glucose 187 mg/dL (74-106) Calcium Level 9.4 mg/dL (8.7-10.4) Total Bilirubin 0.4 mg/dL (0.2-1.0) Aspartate Amino Transferase (AST) 14 U/L (13-40) Alanine Aminotransferase (ALT) 30 U/L (7-40) Alkaline Phosphatase 61 U/L (46-116) Total Protein 6.3 g/dL (5.7-8.2) Albumin 3.8 g/dL (3.2-4.8) Thyroid Stimulating Hormone (TSH) 0.25 uIU/mL (0.55-4.78) Troponin I High Sensitivity 11 ng/L (</=34) Influenza Type A Antigen Negative (Negative) Influenza Type B Antigen Negative (Negative) SARS-CoV-2 Antigen (Rapid) Negative (NEGATIVE) Test 09/12/24 13:56 09/12/24 13:18 D-Dimer, Quantitative 2.37 mg/L FEU (0.0-0.49) Lactic Acid Level 1.6 mmol/L (0.4-2.0) Magnesium Level 1.8 mg/dL (1.6-2.6) B-Type Natriuretic Peptide 262.25 pg/mL (0-100) Urine Color Colorless (Yellow) Urine Clarity Clear (Clear) Urine pH 5.0 (5.0-9.0) Urine Specific [place] 1.013 (1.001-1.035) Urine Protein Negative (Negative) Urine Ketones Negative (Negative) Urine Blood Negative /uL (Negative) Urine Nitrite Negative (Negative) Urine Bilirubin Negative (Negative) Urine Urobilinogen Normal mg/dL (Negative) Urine Leukocyte Esterase 2+ /uL (Negative) Urine RBC 2 /hpf (0 - 4) Urine Microscopic WBC 9 /HPF (0-5) Urine Squamous Epithelial Cells Few /hpf (<5) Urine Bacteria None seen /hpf (None Seen) Urine Glucose Normal mg/dL (Normal) Urine Opiates Screen Neg (NEGATIVE) Urine Fentanyl Screen Neg (NEGATIVE) Urine Barbiturates Screen Neg (NEGATIVE) Urine Phencyclidine Screen Neg (NEGATIVE) Urine Amphetamines Screen Neg (NEGATIVE) Urine Benzodiazepines Screen Neg (NEGATIVE) Urine Cocaine Screen Neg (NEGATIVE) Urine Cannabinoids Screen Neg (NEGATIVE) Other Laboratory Tests 09/14/24 05:21 Brief Hx & Hospital Course: Patient is a 69 year old female with past medical history of hypertension, obesity, COPD who presented with complaints of palpitations. Patient presented in atrial fibrillation RVR. Patient was admitted and seen by cardiology. Patient was started on amiodarone drip. Patient's heart rate remained persistently elevated in the 120s. She was treated with additional doses of digoxin and metoprolol. Patient was ultimately transition to amiodarone 400 mg p.o. twice daily for 3 days followed by 200 mg twice daily thereafter. She is also to take digoxin 0.125mg daily. She was discharged on Lopressor 25 mg p.o. twice daily. Patient was planned to undergo cardioversion but refused the procedure. This was discussed with cardiology who recommended outpatient follow up within the week, which the patient was in agreement with. Patient initially did not have any leukocytosis but developed WBC count of 14.3 which resolved prior to discharge. Patient had productive cough with green sputum and noted that that has been present for several days. She was started on Levaquin and discharged for an additional 5-day course. TTE was done which showed EF 25% with reduced systolic function. She was diuresed with lasix 40mg IV BID and transitioned to lasix 40mg PO daily. No KCL supplementation was added as potassium was noted to be >4 during her hospitalization. Patient was noted to be on 3 L oxygen. Home oxygen provided prior to discharge. Patient cleared by cardiology for discharge. Patient was counseled on bleeding risks while on Eliquis. Patient discharged in stable condition. [facility] case management to arrange follow-up appointments. Condition at Discharge: Good Final Diagnosis/Problems List Atrial Fibrillation with RVR Secondary Diagnosis: End Stage Heart Failure, Reduced Systolic EF 25% Morbid Obesity Acute Respiratory Failure Pneumonia likely due to mixed gram positive vs gram negative bacteria Discharge Disposition: Home Discharge Instruct/Medications Diet: Cardiac 2g Na,low cholest Activity: No Restrictions, As Tolerated Follow Up/Referral: Follow up with cardiology. Medications: Amioadarone Metoprolol Eliquis (caution with bleeding risk. If hit head or have uncontrolled bleeding, need to immediately return to ER). Discharge Statement: "Patient was advised to return to the ER or call 911 if any headaches, dizziness, shortness of breath, chest pain, abdominal pain, bleeding, fevers, or worsening of medical condition. Patient was counseled about treatment plan, medications, possible side effects, patientverbalized understanding. All questions were answered to the best of my ability. This discharge took greater then 30 minutes in planning, reviewing documentation, counseling the patient, and discussing with other team members." ASSESSMENT ASSESSMENT Assessment Atrial Fibrillation with RVR SANCHEZ TOURE DO Sep 14, 2024 13:46
[2024-09-14] MEDS: AMIODARONE HCL 200 MG TAB PO SCH (14:08)
--- NOTE | 2024-09-14 17:50 | DVHPN2 ---
Progress Note - Dictate Date Seen: Sep 14, 2024 Medical Necessity Reason Pt with a Central, PICC or Fol: No Subjective Patient was seen and evaluated in follow up. No overnight events. Patient is on Amiodarone and Metoprolol. WBC 14.3, BUN 27. Patient is cardiac stable for discharge. Telemetry reviewed. vital signs Vital Sign Date Time Temp Pulse Resp B/P (MAP) Pulse Ox O2 Delivery O2 Flow Rate FiO2 09/14/24 11:41 124 109/70 09/14/24 08:20 97.8 18 94 97.8 09/14/24 08:00 Nasal Cannula* 3 32 Total Intake and Output 09/13/24 09/13/24 09/14/24 15:00 23:00 07:00 Intake Total 200 ml 600 ml 1000 ml Balance 200 ml 600 ml 1000 ml medications Current Medications Medications Dose Ordered Sig/Giovani Route Start Time Stop Time Status Last Admin Dose Admin Acetaminophen 325 mg Q4HP PRN PO 09/12/24 18:45 Acetaminophen/ Hydrocodone Bitart 1 tab Q4HP PRN PO 09/12/24 18:45 09/14/24 09:52 1 TAB Temazepam 15 mg QHSP PRN PO 09/12/24 18:45 Nitroglycerin 0.4 mg Q5MINP PRN SL 09/12/24 18:45 Morphine Sulfate 2 mg Q30M PRN IV 09/12/24 18:45 Apixaban 5 mg BID PO 09/12/24 22:00 09/14/24 09:41 5 MG Furosemide 40 mg DAILY IV 09/13/24 10:00 09/14/24 09:41 40 MG Levofloxacin 750 mg DAILY PO 09/14/24 10:15 09/14/24 11:41 750 MG Polyethylene Glycol 17 gm DAILY PO 09/14/24 10:15 Metoprolol Tartrate 50 mg BID PO 09/14/24 10:15 09/14/24 11:41 50 MG objective GENERAL: Awake, alert, oriented. Morbidly obese. LUNGS: Clear. CARDIOVASCULAR: Irregular rate/rhythm. ABDOMEN: Soft. laboratory and microbiology Laboratory Tests 09/14/24 05:21 Test 09/14/24 05:21 Range/Units Serum Glucose 187 H 74-106 mg/dL Problem List Atrial fibrillation with RVR. Dyspnea. Pleural effusion. CHF (congestive heart failure). Pulmonary artery hypertension. UTI. Assessment/Plan Continued all current supportive medical care. Echocardiogram. Digoxin. Morphine and [place] for pain management. Eliquis. Diuretics with Lasix. Nitro SL. Additional plan as per the hospital course. Plan discussed with: Patient JAMES NICHOLS MD Sep 14, 2024 12:04
--- NOTE | 2024-09-14 21:29 | DVHSR ---
APPROVED REPORT EXAM: LIMITED Two-dimensional and M-mode echocardiogram with Doppler and color Doppler. Blood Pressure: 99/66 mmHg INDICATION Atrial Fibrillation W RVR RISK FACTORS Obesity: Height: 5' 3", Weight: 264 DIMENSIONS LVDd5.3 (3.8-5.7cm)LA (2D)4.2 (1.9-4.0cm)Aortic Root2.7 (2.0-3.7cm) LVDs4.6 (2.5-4.0cm)LA (MM) (1.9-4.0cm)Aortic Cusp Exc1.7 (1.5-2.0cm) EF (%) 30.0 (55-70%)Rt. Atrium4.5 (1.9-4.0cm)Asc. Aorta cm IVSd1.0 (0.7-1.1cm)RV (D) (1.8-2.4cm) PWd1.0 (0.7-1.1cm) Mitral Valve MitralMitral Stenosis E wave1.50m/sMV Mean GR.mmHg E/A ratio0.02D MVAcm2 Aortic Valve Aortic ValveAortic Stenosis V10.60m/Berenice Mean GR.4mmHg V21.20m/Berenice Peak GR.6mmHg LVOT Diameter2.2 (1.8-2.4cm)Doppler AVA1.90cm2 Pulmonic Valve V20.50m/s Tricuspid Valve TR Velocity2.80m/s [id number] Other Information Quality : Technically LimitedRhythm : Atrial Fibrillation Technically limited study due to body habitus. Conclusion DILATED ALL CARDIAC CHAMBERS GLOBAL LV AND RV HYPOKINESIS LV HYPOKINESIS LV EF IS ONLY 25% NORMAL VALVES NO EFFUSION STUDY CONSISTENT WITH DILATED CARDIOMYOPATHY
--- NOTE | 2024-09-14 21:35 | DVHPN2 ---
Progress Note - Dictate Date Seen: Sep 14, 2024 Medical Necessity Reason Pt with a Central, PICC or Fol: No Subjective Patient is comfortable. Heart rate remains elevated in the 120's. vital signs Vital Sign Date Time Temp Pulse Resp B/P (MAP) Pulse Ox O2 Delivery O2 Flow Rate FiO2 09/14/24 21:00 97.5 116 16 105/70 (82) 96 97.5 09/14/24 08:00 Nasal Cannula* 3 32 Total Intake and Output 09/13/24 09/13/24 09/14/24 15:00 23:00 07:00 Intake Total 200 ml 600 ml 1000 ml Balance 200 ml 600 ml 1000 ml medications Current Medications Medications Dose Ordered Sig/Giovani Route Start Time Stop Time Status Last Admin Dose Admin Acetaminophen 325 mg Q4HP PRN PO 09/12/24 18:45 Acetaminophen/ Hydrocodone Bitart 1 tab Q4HP PRN PO 09/12/24 18:45 09/14/24 09:52 1 TAB Temazepam 15 mg QHSP PRN PO 09/12/24 18:45 Nitroglycerin 0.4 mg Q5MINP PRN SL 09/12/24 18:45 Morphine Sulfate 2 mg Q30M PRN IV 09/12/24 18:45 Apixaban 5 mg BID PO 09/12/24 22:00 09/14/24 09:41 5 MG Furosemide 40 mg DAILY IV 09/13/24 10:00 09/14/24 09:41 40 MG Levofloxacin 750 mg DAILY PO 09/14/24 10:15 09/14/24 11:41 750 MG Polyethylene Glycol 17 gm DAILY PO 09/14/24 10:15 Metoprolol Tartrate 50 mg BID PO 09/14/24 10:15 09/14/24 11:41 50 MG Amiodarone HCl 400 mg Q12HR PO 09/14/24 13:30 09/14/24 14:08 400 MG objective General: Obese, no acute distress Respiratory: Fine bibasilar crackles Card: Irregularly irregular rhythm laboratory and microbiology Laboratory Tests 09/14/24 05:21 Test 09/14/24 05:21 Range/Units Serum Glucose 187 H 74-106 mg/dL Assessment/Plan 1. Atrial Fibrillation with RVR 2' Diagnosis/Co-morbidities 2. Morbid Obesity 3. Acute Respiratory Failure Plan: -Cardiology consulted for atrial fibrillation with RVR -Goal HR <120 -Amiodarone drip converted to PO -Eliquis started for stroke risk reduction. Patient counseled on bleeding risks/precautions -Metoprolol dose increased -TTE results pending -Levofloxacin started due to concern of underlying pneumonia -Lasix 40 mg IV daily given 1+ pitting edema and elevated BNP (falsely low likely due to morbid obesity) -Continue nasal cannula with goal pulse oxygen of greater than 90% -PE ruled out, pneumonia unlikely. Respiratory failure likely secondary to CHF exacerbation versus pulmonary hypertension -CODE STATUS: DO NOT RESUSCITATE, discussed with the patient at bedside. Plan discussed with: Patient SANCHEZ TOURE Sep 14, 2024 21:35
[2024-09-15] VITALS (9 sets, daily range): BP systolic 105–125; BP diastolic 65–81; PULSE 76–124; RESP 16–18; TEMP 97.4–98; O2SAT 92–100
[2024-09-15 06:12] LABS: Basophils # (auto) 0 10 ^3/uL (0-0.2); Basophils % (auto) 0.4 % (0.0-2.0); Eosinophils # (auto) 0.1 10 ^3/uL (0-0.8); Eosinophils % (auto) 1.4 % (0.0-7.0); Hematocrit 36.4 % (36.0-46.0); Hemoglobin 11.6 g/dL (12.2-16.2); Lymphocytes % (auto) 22.5 % (10.0-50.0); Mean Corpuscular Hemoglobin 29.1 pg (28.0-32.0); Mean Corpuscular Hgb Conc. 31.8 g/dL (32.0-36.0); Mean Corpuscular Volume 91.4 fL (80.0-100.0); Monocytes # (auto) 1.1 10 ^3/uL (0-1.3); Monocytes % (auto) 12.3 % (0.0-12.0); Neutrophils # (auto) 5.7 10 ^3/uL (1.6-8.6); Neutrophils % (auto) 63.4 % (37.0-80.0); Nucleated Red Blood Cells % 0.1 %; Platelet Count (auto) 232 10^3/uL (140-450); Red Blood Cells 3.98 10^6/uL (4.0-5.20); Red Cell Distribution Width 15.3 % (11.8-14.3); White Blood Cell 9.1 10^3/uL (4.4-10.8)
[2024-09-15 06:32] LABS: Alanine Aminotransferase 27 U/L (7-40); Albumin 3.7 g/dL (3.2-4.8); Alkaline Phosphatase 61 U/L (46-116); Anion Gap 8 (5-15); BUN/Creatinine Ratio 27.4 (10.0-20.0); Blood Urea Nitrogen 23 mg/dL (9-23); Calcium 9.1 mg/dL (8.7-10.4); Carbon Dioxide 28 mmol/L (20-31); Chloride 99 mmol/L (98-107); Potassium 4.5 mmol/L (3.5-5.1)
[2024-09-15 06:33] LABS: Bilirubin, Total 0.4 mg/dL (0.2-1.0)
[2024-09-15 06:34] LABS: Aspartate Aminotransferase < 8 U/L (13-40); Glucose 187 mg/dL (74-106); Sodium 135 mmol/L (136-145)
[2024-09-15] MEDS ORDERED: LOS25T PO (10:09)
[2024-09-15] MEDS ORDERED: FURO1TAB31 PO (10:09)
[2024-09-15] MEDS ORDERED: LISI10TA34 PO (10:42)
[2024-09-15] MEDS ORDERED: NYS5LQ MT (10:43)
[2024-09-15] MEDS: NYSTATIN (MOUTH-THROAT) 500,000 UNITS/5 ML SUSP MT SCH (12:40)
--- NOTE | 2024-09-15 12:54 | DVHPN2 ---
Progress Note - Dictate Date Seen: Sep 15, 2024 Medical Necessity Reason Pt with a Central, PICC or Fol: No Subjective Patient is comfortable. Heart rate remains elevated in the 120's. vital signs Vital Sign Date Time Temp Pulse Resp B/P (MAP) Pulse Ox O2 Delivery O2 Flow Rate FiO2 09/15/24 09:23 120/76 09/15/24 09:22 124 09/15/24 08:46 98.0 18 92 98.0 09/14/24 20:00 Nasal Cannula* 3 32 Total Intake and Output 09/14/24 09/14/24 09/15/24 15:00 23:00 07:00 Intake Total 886 ml 1000 ml Balance 886 ml 1000 ml medications Current Medications Medications Dose Ordered Sig/Giovani Route Start Time Stop Time Status Last Admin Dose Admin Acetaminophen 325 mg Q4HP PRN PO 09/12/24 18:45 Acetaminophen/ Hydrocodone Bitart 1 tab Q4HP PRN PO 09/12/24 18:45 09/14/24 23:12 1 TAB Temazepam 15 mg QHSP PRN PO 09/12/24 18:45 Nitroglycerin 0.4 mg Q5MINP PRN SL 09/12/24 18:45 Morphine Sulfate 2 mg Q30M PRN IV 09/12/24 18:45 Apixaban 5 mg BID PO 09/12/24 22:00 09/15/24 09:20 5 MG Levofloxacin 750 mg DAILY PO 09/14/24 10:15 09/15/24 09:26 750 MG Polyethylene Glycol 17 gm DAILY PO 09/14/24 10:15 Metoprolol Tartrate 50 mg BID PO 09/14/24 10:15 09/15/24 09:22 50 MG Amiodarone HCl 400 mg Q12HR PO 09/14/24 13:30 09/15/24 09:20 400 MG Nystatin 5 ml QID MT 09/15/24 12:00 09/15/24 12:40 5 ML Furosemide 40 mg BIDD IV 09/15/24 18:00 objective General: Obese, no acute distress Respiratory: Fine bibasilar crackles Card: Irregularly irregular rhythm. 2+ pitting edema in lower extremities. laboratory and microbiology Laboratory Tests 09/15/24 04:36 Test 09/15/24 04:36 Range/Units Serum Glucose 187 H 74-106 mg/dL Assessment/Plan 1. Atrial Fibrillation with RVR 2' Diagnosis/Co-morbidities 2. Morbid Obesity 3. Acute Respiratory Failure 4. End stage CHF reduced systolic EF 25% 5. Thrush Plan: -Cardiology consulted for atrial fibrillation with RVR -Goal HR <120 -Amiodarone drip converted to PO -Eliquis started for stroke risk reduction. Patient counseled on bleeding risks/precautions -Metoprolol dose increased -TTE show end stage CHF -Levofloxacin started due to concern of underlying pneumonia -Lasix 40 mg IV BID, increased due to end stage CHF with persistent edema of LE -Continue nasal cannula with goal pulse oxygen of greater than 90% -Strict I/O -PE ruled out, pneumonia unlikely. Respiratory failure likely secondary to CHF exacerbation versus pulmonary hypertension -Nystatin swish and swallow added for thrush -CODE STATUS: DO NOT RESUSCITATE, discussed with the patient at bedside. Plan discussed with: Patient SANCHEZ TOURE Sep 15, 2024 12:54
--- NOTE | 2024-09-15 13:05 | DVH ---
CHEST RADIOGRAPH Indication: respiratory failure Technique: Single frontal view of the chest was obtained Comparison: XY CHEST PORTABLE on DOS: 09/12/24, XY CHEST PORTABLE on DOS: 09/12/24 FINDINGS: Lines and Tubes: None Lungs: Mildly prominent interstitial markings throughout both lung charles. May represent pneumonia o r congestive failure Pleura: No effusion. No pneumothorax. Cardiomediastinal contours: Cardiac size upper limits of normal. Bones: No acute osseous abnormality. IMPRESSION: 1. Cardiomegaly, mildly prominent interstitial markings diffusely throughout both lung charles.
[2024-09-15] MEDS ORDERED: ATOR20TA50 PO (17:49)
[2024-09-15] MEDS: FUROSEMIDE 40 MG/4 ML VIAL IV SCH (18:00)
[2024-09-15] MEDS: LISINOPRIL 5 MG TAB PO SCH (18:00)
[2024-09-15] MEDS: AMIODARONE BOLUS KIT 100 ML IV ONE (21:59)
[2024-09-15] MEDS: ATORVASTATIN 20 MG TAB PO SCH (22:12)
--- NOTE | 2024-09-15 22:15 | DVHPN2 ---
Progress Note - Dictate Date Seen: Sep 15, 2024 Medical Necessity Reason Pt with a Central, PICC or Fol: No Subjective Patient was seen and evaluated in follow up. No overnight events. Patients heart rate remains elevated in the 120's. TTE show end stage CHF. Patient started on Nystatin swish and swallow for thrush. Chest x-ray shows cardiomegaly, mildly prominent interstitial markings diffusely throughout both lung charles. Telemetry reviewed. vital signs Vital Sign Date Time Temp Pulse Resp B/P (MAP) Pulse Ox O2 Delivery O2 Flow Rate FiO2 09/15/24 13:05 97.5 113 17 105/70 (82) 95 97.5 09/14/24 20:00 Nasal Cannula* 3 32 Total Intake and Output 09/14/24 09/14/24 09/15/24 15:00 23:00 07:00 Intake Total 886 ml 1000 ml Balance 886 ml 1000 ml medications Current Medications Medications Dose Ordered Sig/Giovani Route Start Time Stop Time Status Last Admin Dose Admin Acetaminophen 325 mg Q4HP PRN PO 09/12/24 18:45 Acetaminophen/ Hydrocodone Bitart 1 tab Q4HP PRN PO 09/12/24 18:45 09/14/24 23:12 1 TAB Temazepam 15 mg QHSP PRN PO 09/12/24 18:45 Nitroglycerin 0.4 mg Q5MINP PRN SL 09/12/24 18:45 Morphine Sulfate 2 mg Q30M PRN IV 09/12/24 18:45 Apixaban 5 mg BID PO 09/12/24 22:00 09/15/24 09:20 5 MG Levofloxacin 750 mg DAILY PO 09/14/24 10:15 09/15/24 09:26 750 MG Polyethylene Glycol 17 gm DAILY PO 09/14/24 10:15 Metoprolol Tartrate 50 mg BID PO 09/14/24 10:15 09/15/24 09:22 50 MG Amiodarone HCl 400 mg Q12HR PO 09/14/24 13:30 09/15/24 09:20 400 MG Nystatin 5 ml QID MT 09/15/24 12:00 09/15/24 12:40 5 ML Furosemide 40 mg BIDD IV 09/15/24 18:00 objective GENERAL: Awake, alert, oriented. Morbidly obese. LUNGS: Clear. CARDIOVASCULAR: Irregular rate/rhythm. ABDOMEN: Soft. laboratory and microbiology Laboratory Tests 09/15/24 04:36 Test 09/15/24 04:36 Range/Units Serum Glucose 187 H 74-106 mg/dL Problem List Atrial fibrillation with RVR. Dyspnea. Pleural effusion. End stage CHF reduced systolic EF 25%. Pulmonary artery hypertension. UTI. Morbid Obesity. Acute Respiratory Failure. Thrush. Assessment/Plan Continued all current supportive medical care. Echocardiogram. Digoxin. Morphine and [place] for pain management. Eliquis. Diuretics with Lasix. Lisinopril. IV antibiotics as ordered. Additional plan as per the hospital course. Plan discussed with: Patient JAMES NICHOLS MD Sep 15, 2024 13:26
[2024-09-15] MEDS: DIGOXIN (250MCG/ML) 2 ML AMPULE IV ONE (22:26)
[2024-09-16] VITALS (8 sets, daily range): BP systolic 104–121; BP diastolic 55–73; PULSE 112–130; RESP 16–20; TEMP 97.6–98.1; O2SAT 91–99
[2024-09-16 10:53] LABS: Basophils # (auto) 0 10 ^3/uL (0-0.2); Basophils % (auto) 0.3 % (0.0-2.0); Eosinophils # (auto) 0.1 10 ^3/uL (0-0.8); Hematocrit 35.1 % (36.0-46.0); Hemoglobin 11.8 g/dL (12.2-16.2); Lymphocytes % (auto) 11.8 % (10.0-50.0); Mean Corpuscular Hemoglobin 30.3 pg (28.0-32.0); Mean Corpuscular Hgb Conc. 33.7 g/dL (32.0-36.0); Mean Corpuscular Volume 90.1 fL (80.0-100.0); Monocytes # (auto) 1.1 10 ^3/uL (0-1.3); Monocytes % (auto) 13.1 % (0.0-12.0); Neutrophils # (auto) 6.2 10 ^3/uL (1.6-8.6); Neutrophils % (auto) 73.8 % (37.0-80.0); Nucleated Red Blood Cells % 0.1 %; Platelet Count (auto) 234 10^3/uL (140-450); Red Blood Cells 3.89 10^6/uL (4.0-5.20); Red Cell Distribution Width 15.2 % (11.8-14.3); White Blood Cell 8.3 10^3/uL (4.4-10.8)
[2024-09-16 11:00] LABS: Alanine Aminotransferase 26 U/L (7-40); Alkaline Phosphatase 59 U/L (46-116); Anion Gap 8 (5-15); BUN/Creatinine Ratio 18.3 (10.0-20.0); Blood Urea Nitrogen 17 mg/dL (9-23); Calcium 9.2 mg/dL (8.7-10.4); Potassium 4.2 mmol/L (3.5-5.1); Sodium 139 mmol/L (136-145)
[2024-09-16 11:01] LABS: Total Protein 6.1 g/dL (5.7-8.2)
[2024-09-16 11:02] LABS: Albumin 3.7 g/dL (3.2-4.8); Aspartate Aminotransferase 14 U/L (13-40); Bilirubin, Total 0.6 mg/dL (0.2-1.0); Carbon Dioxide 34 mmol/L (20-31); Chloride 97 mmol/L (98-107); Glucose 230 mg/dL (74-106)
--- NOTE | 2024-09-16 12:51 | DVHPN2 ---
Progress Note - Dictate Date Seen: Sep 16, 2024 Medical Necessity Reason Pt with a Central, PICC or Fol: No Subjective Patient is comfortable. Heart rate remains elevated in the 130's despite addition of digoxin. vital signs Vital Sign Date Time Temp Pulse Resp B/P (MAP) Pulse Ox O2 Delivery O2 Flow Rate FiO2 09/16/24 08:52 130 121/73 09/16/24 08:51 97.9 18 93 97.9 09/16/24 08:00 Room Air* 3 N/A Nasal Cannula* Total Intake and Output 09/15/24 09/15/24 09/16/24 15:00 23:00 07:00 Intake Total 1100 ml 800 ml Balance 1100 ml 800 ml medications Current Medications Medications Dose Ordered Sig/Giovani Route Start Time Stop Time Status Last Admin Dose Admin Acetaminophen 325 mg Q4HP PRN PO 09/12/24 18:45 Acetaminophen/ Hydrocodone Bitart 1 tab Q4HP PRN PO 09/12/24 18:45 09/16/24 08:50 1 TAB Temazepam 15 mg QHSP PRN PO 09/12/24 18:45 Nitroglycerin 0.4 mg Q5MINP PRN SL 09/12/24 18:45 Morphine Sulfate 2 mg Q30M PRN IV 09/12/24 18:45 Apixaban 5 mg BID PO 09/12/24 22:00 09/16/24 08:52 5 MG Levofloxacin 750 mg DAILY PO 09/14/24 10:15 09/16/24 08:51 750 MG Polyethylene Glycol 17 gm DAILY PO 09/14/24 10:15 Metoprolol Tartrate 50 mg BID PO 09/14/24 10:15 09/16/24 08:52 50 MG Amiodarone HCl 400 mg Q12HR PO 09/14/24 13:30 09/16/24 08:50 400 MG Nystatin 5 ml QID MT 09/15/24 12:00 09/16/24 06:18 5 ML Furosemide 40 mg BIDD IV 09/15/24 18:00 09/16/24 06:22 40 MG Atorvastatin Calcium 40 mg HS PO 09/15/24 22:00 09/15/24 22:12 40 MG Lisinopril 2.5 mg DAILY PO 09/15/24 18:00 09/16/24 08:51 2.5 MG objective General: Obese, no acute distress Respiratory: Fine bibasilar crackles Card: Irregularly irregular rhythm. 2+ pitting edema in lower extremities. laboratory and microbiology Laboratory Tests 09/16/24 10:15 Test 09/16/24 10:15 Range/Units Serum Glucose 230 H 74-106 mg/dL Assessment/Plan 1. Atrial Fibrillation with RVR 2' Diagnosis/Co-morbidities 2. Morbid Obesity 3. Acute Respiratory Failure 4. End stage CHF reduced systolic EF 25% 5. Thrush Plan: -Cardiology consulted for atrial fibrillation with RVR -Goal HR <120 -Amiodarone drip converted to PO -Eliquis started for stroke risk reduction. Patient counseled on bleeding risks/precautions -Metoprolol dose increased, digoxin added -TTE show end stage CHF -Levofloxacin started due to concern of underlying pneumonia -Lasix 40 mg IV BID, increased due to end stage CHF with persistent edema of LE -Continue nasal cannula with goal pulse oxygen of greater than 90% -Strict I/O -PE ruled out, pneumonia unlikely. Respiratory failure likely secondary to CHF exacerbation versus pulmonary hypertension -Nystatin swish and swallow added for thrush -Per cardiology, if heart rate not controlled, will need ablation. Pending evaluation by EPS. -CODE STATUS: DO NOT RESUSCITATE, discussed with the patient at bedside. Dietary Evaluation Review Comments: 1) Continue to promote optimal PO intake 2) Refer to outpatient RD for weight management and heart healthy diet education 3) Consider collecting HbA1c 4) F/u with cardiology 5) Continue to monitor I&O, labs, and skin integrity Expected Outcomes/Goals: 1) appetite and labs to improve 2) f/u in 3-5 days Plan discussed with: Patient SANCHEZ TOURE DO Sep 16, 2024 12:50
--- NOTE | 2024-09-16 15:29 | ECG ---
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
[2024-09-16] MEDS: TEMAZEPAM 15 MG CAP PO PRN (22:42)
--- NOTE | 2024-09-16 22:48 | DVHPN2 ---
Progress Note - Dictate Date Seen: Sep 16, 2024 Medical Necessity Reason Pt with a Central, PICC or Fol: No Subjective Patient was seen and evaluated in follow up. Patients HR remains elevated in the 130s despite Digoxin and Metoprolol. If heart rate not controlled, will need ablation. Pending evaluation by EPS. Telemetry reviewed. vital signs Vital Sign Date Time Temp Pulse Resp B/P (MAP) Pulse Ox O2 Delivery O2 Flow Rate FiO2 09/16/24 21:10 125 115/62 09/16/24 20:40 97.6 20 91 97.6 09/16/24 08:00 Room Air* 3 N/A Nasal Cannula* Total Intake and Output 09/15/24 09/15/24 09/16/24 15:00 23:00 07:00 Intake Total 1100 ml 800 ml Balance 1100 ml 800 ml medications Current Medications Medications Dose Ordered Sig/Giovani Route Start Time Stop Time Status Last Admin Dose Admin Acetaminophen 325 mg Q4HP PRN PO 09/12/24 18:45 Acetaminophen/ Hydrocodone Bitart 1 tab Q4HP PRN PO 09/12/24 18:45 09/16/24 18:04 1 TAB Temazepam 15 mg QHSP PRN PO 09/12/24 18:45 Nitroglycerin 0.4 mg Q5MINP PRN SL 09/12/24 18:45 Morphine Sulfate 2 mg Q30M PRN IV 09/12/24 18:45 Apixaban 5 mg BID PO 09/12/24 22:00 09/16/24 21:09 5 MG Levofloxacin 750 mg DAILY PO 09/14/24 10:15 09/16/24 08:51 750 MG Polyethylene Glycol 17 gm DAILY PO 09/14/24 10:15 Metoprolol Tartrate 50 mg BID PO 09/14/24 10:15 09/16/24 21:10 50 MG Amiodarone HCl 400 mg Q12HR PO 09/14/24 13:30 09/16/24 21:09 400 MG Nystatin 5 ml QID MT 09/15/24 12:00 09/16/24 21:09 5 ML Furosemide 40 mg BIDD IV 09/15/24 18:00 09/16/24 17:42 40 MG Atorvastatin Calcium 40 mg HS PO 09/15/24 22:00 09/16/24 21:10 40 MG Lisinopril 2.5 mg DAILY PO 09/15/24 18:00 09/16/24 08:51 2.5 MG objective GENERAL: Awake, alert, oriented. Morbidly obese. LUNGS: Clear. CARDIOVASCULAR: Irregular rate/rhythm. ABDOMEN: Soft. laboratory and microbiology Laboratory Tests 09/16/24 10:15 Test 09/16/24 10:15 Range/Units Serum Glucose 230 H 74-106 mg/dL Problem List Atrial fibrillation with RVR. Dyspnea. Pleural effusion. End stage CHF reduced systolic EF 25%. Pulmonary artery hypertension. UTI. Morbid Obesity. Acute Respiratory Failure. Thrush. Assessment/Plan Continued all current supportive medical care. Morphine and [place] for pain management. Amiodarone. Eliquis. Diuretics with Lasix. Antibiotics as ordered. Lisinopril. Metoprolol. Additional plan as per the hospital course. Dietary Evaluation Review Comments: 1) Continue to promote optimal PO intake 2) Refer to outpatient RD for weight management and heart healthy diet education 3) Consider collecting HbA1c 4) F/u with cardiology 5) Continue to monitor I&O, labs, and skin integrity Expected Outcomes/Goals: 1) appetite and labs to improve 2) f/u in 3-5 days Plan discussed with: Patient JAMES NICHOLS MD Sep 16, 2024 22:48
[2024-09-17 01:00] VITALS: BP 99/52; PULSE 120; RESP 20; TEMP 97.9; O2SAT 93
[2024-09-17 05:00] VITALS: BP 101/78; PULSE 118; RESP 20; TEMP 98.1; O2SAT 99
[2024-09-17 08:00] VITALS: PULSE 120; RESP 20; O2SAT 98
[2024-09-17] MEDS ORDERED: MIDAZOLAM HCL 2MG/2ML 2ml VIAL (1mg/ml) IV ONE (08:45)
[2024-09-17] MEDS ORDERED: LIDOCAINE VISCOUS 2% 15ML UD MT ONE (08:45)
[2024-09-17] MEDS ORDERED: fentaNYL CITRATE 100 MCG/2 ML VL IV ONE (08:45)
[2024-09-17 09:00] VITALS: BP 101/67; PULSE 120; RESP 20; TEMP 98.3; O2SAT 98
--- NOTE | 2024-09-17 09:12 | CONS ---
Pharmacy Clinical Information: From Heart Failure Fallout Report on CQM Application, Her home medications are unclear. Her inpatient medications include furosemide, lisinopril, metoprolol tartrate. SGLT2i not recommended at this time due to UTI. Consider switching metoprolol tartrate to metoprolol succinate once patient becomes hemodynamically stable. Consider MRA once renal function stabilizes since K < 5 and eGFR > 30. KAMARI ADKINS PHARMACIST Sep 17, 2024 09:12
[2024-09-17] MEDS ORDERED: LISI-275 PO (09:53)
[2024-09-17] MEDS ORDERED: DIGO0.12 PO (09:53)
--- NOTE | 2024-09-17 19:55 | DVHPN2 ---
Progress Note - Dictate Date Seen: Sep 17, 2024 Medical Necessity Reason Pt with a Central, PICC or Fol: No Subjective Patient was seen and evaluated in follow up. HR remains in the 120s. Patient was scheduled for MALI today. Patients called and instructed patient not to go down until he got to the hospital. Patient stated she wanted to wait for her to arrive. Patient and were informed that we are ready to start procedure in the supervisor [facility] laboratory, however patient declined. Procedure was cancelled. Patient to follow up with cardiology outpatient. Telemetry reviewed. vital signs Vital Sign Date Time Temp Pulse Resp B/P (MAP) Pulse Ox O2 Delivery O2 Flow Rate FiO2 09/17/24 09:00 98.3 120 20 101/67 (78) 98 98.3 09/17/24 08:00 Nasal Cannula* 3 32 Total Intake and Output 09/16/24 09/16/24 09/17/24 15:00 23:00 07:00 Intake Total 1020 ml 0 ml Balance 1020 ml 0 ml objective GENERAL: Awake, alert, oriented. Morbidly obese. LUNGS: Clear. CARDIOVASCULAR: Irregular rate/rhythm. ABDOMEN: Soft. laboratory and microbiology Laboratory Tests 09/16/24 10:15 Test 09/16/24 10:15 Range/Units Serum Glucose 230 H 74-106 mg/dL Problem List Atrial fibrillation with RVR. Dyspnea. Pleural effusion. End stage CHF reduced systolic EF 25%. Pulmonary artery hypertension. UTI. Morbid Obesity. Acute Respiratory Failure. Thrush. Assessment/Plan Continued all current supportive medical care. Morphine and [place] for pain management. Amiodarone. Eliquis. Diuretics with Lasix. Antibiotics as ordered. Lisinopril. Metoprolol. Additional plan as per the hospital course. Dietary Evaluation Review Comments: 1) Continue to promote optimal PO intake 2) Refer to outpatient RD for weight management and heart healthy diet education 3) Consider collecting HbA1c 4) F/u with cardiology 5) Continue to monitor I&O, labs, and skin integrity Expected Outcomes/Goals: 1) appetite and labs to improve 2) f/u in 3-5 days Plan discussed with: Patient, Spouse JAMES NICHOLS MD Sep 17, 2024 19:55
--- NOTE | 2024-09-19 14:09 | ECG ---
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
== END 2024-09-17 11:47 | disposition home or self-care (01) | DRG 177 ==
LOC: EDBD 13:11 → ER 13:11 → OVERFLOW 18:37 → TELE-CENTR 22:47
PROVIDERS: ADMIT Student in an Organized Health Care Education/Training Program; ATTEND Student in an Organized Health Care Education/Training Program
DX: J15.69 Pneumonia due to other Gram-negative bacteria (principal); J96.00 Acute respiratory failure, unspecified whether with hypoxia or hypercapnia; N39.0 Urinary tract infection, site not specified; J44.0 Chronic obstructive pulmonary disease with (acute) lower respiratory infection; B37.0 Candidal stomatitis; I11.0 Hypertensive heart disease with heart failure; Z20.822 Contact with and (suspected) exposure to COVID-19; J15.9 Unspecified bacterial pneumonia; I48.91 Unspecified atrial fibrillation; I27.21 Secondary pulmonary arterial hypertension; I50.84 End stage heart failure; E66.01 Morbid (severe) obesity due to excess calories; B37.9 Candidiasis, unspecified; Z79.899 Other long term (current) drug therapy; Z88.0 Allergy status to penicillin; Z88.2 Allergy status to sulfonamides; Z91.040 Latex allergy status
CPT/HCPCS: 36415; 71045; 71275; 80053; 80307; 81001; 83605; 83735; 83880; 84443; 84484; 85025; 85379; 87426; 87804; 93005; 93306; 96374; 96375; 96376; 97110; 97116; 97163; 97530; 99291; G0378